=== PATIENT | female | born 1990 | race Caucasian/White ===

== ENCOUNTER 2016-11-05 21:56 | Emergency (ER) | payer OTHER, BC ==
[~2016-11-05] VITALS: Ht 170.1 cm; Wt 81.6 kg
[~2016-11-05 21:56] MED LIST: IMITREX25 MG PO; ZITHROMAX Z PA250 MG PO; ZOFRAN ODT4 MG SL
[2016-11-05 22:02] VITALS: BP 130/93
== END 2016-11-05 22:12 | disposition home or self-care (01) ==
LOC: ED 21:56
DX: Z04.3 Encounter for examination and observation following other accident (principal); M54.2 Cervicalgia; Z88.0 Allergy status to penicillin; V49.88XA Car occupant (driver) (passenger) injured in other specified transport accidents, initial encounter; Y93.89 Activity, other specified; Y92.89 Other specified places as the place of occurrence of the external cause; Y99.9 Unspecified external cause status

== ENCOUNTER 2023-01-10 23:12 | Emergency (ER) | payer OTHER ==
[~2023-01-10] VITALS: Wt 90.7 kg
[2023-01-11 00:04] VITALS: BP 135/83
== END 2023-01-11 01:53 | disposition home or self-care (01) ==
LOC: ED 23:12
DX: S93.601A Unspecified sprain of right foot, initial encounter (principal); Z88.0 Allergy status to penicillin; Z91.018 Allergy to other foods; X58.XXXA Exposure to other specified factors, initial encounter; Y93.89 Activity, other specified; Y92.89 Other specified places as the place of occurrence of the external cause; Y99.8 Other external cause status

== ENCOUNTER 2024-04-22 16:28 | Emergency (ER) | payer OTHER ==
[~2024-04-22] VITALS: Ht 170.1 cm; Wt 86.2 kg
[2024-04-22 16:42] VITALS: BP 140/70
[2024-04-22] MEDS ORDERED: SODIUM CHLORIDE 0.9% 1,000 ML IV ONE (16:50)
[2024-04-22] MEDS ORDERED: Ketorolac Tromethamine 15 MG/ML VIAL IV ONE (16:50)
[2024-04-22 17:14] LABS: BASO # 0.1 10*3/uL (0.0-0.1); BASO % 0.4 % (0.0-1.0); EOS # 0.3 10*3/uL (0.0-0.4); HEMATOCRIT 38.1 % (37.0-47.0); MEAN CELL VOLUME 86.6 fl (81.0-99.0); MEAN CORPUSCULAR HGB 28.6 pg (27.0-31.0); MEAN CORPUSCULAR HGB CONC 33.1 g/dl (33.0-37.0); MEAN PLATELET VOLUME 8.9 fl (9.6-12.3); MONO # 1.3 10*3/uL (0.1-1.0); MONO % 9.4 % (3.0-9.0); NEUT # 8.9 10*3/uL (2.3-7.9); PLATELET COUNT AUTOMATED 344 10*3/uL (130-400); RED CELL DISTRI WIDTH 12.2 % (0-14.5); WHITE BLOOD COUNT 13.5 10*3/uL (4.8-10.8)
[2024-04-22 17:35] LABS: BUN 11 mg/dl (9-23); CHLORIDE 101 mmol/L (98-107); POTASSIUM 3.3 mmol/L (3.4-5.1)
[2024-04-22] MEDS ORDERED: POTASSIUM CHLORIDE 20 MEQ TAB PO ONE (17:40)
[2024-04-22] MEDS ORDERED: AVPAK AZITHROM250 M1 PO (17:42)
== END 2024-04-22 18:16 | disposition home or self-care (01) ==
LOC: ED 16:28
PROVIDERS: Emergency Medicine
DX: R07.89 Other chest pain (principal); E87.6 Hypokalemia; J04.0 Acute laryngitis; G43.909 Migraine, unspecified, not intractable, without status migrainosus; Z88.0 Allergy status to penicillin; Z91.018 Allergy to other foods; Z98.890 Other specified postprocedural states

== ENCOUNTER 2025-03-19 19:35 | Emergency (ER) | payer OTHER ==
[~2025-03-19] VITALS: Ht 170.1 cm; Wt 124.7 kg
[~2025-03-19 19:35] MED LIST changes: +AVPAK AZITHROM250 M1 PO
[2025-03-19 19:57] VITALS: BP 150/90
[2025-03-19] MEDS ORDERED: Ondansetron Hydrochloride 4 MG TAB SL ONE (20:10)
[2025-03-19 20:15] LABS: BILIRUBIN Negative (Negative); BLOOD Negative (Negative); CLARITY Cloudy (Clear); COLOR Yellow (Yellow); KETONE Trace (Negative); LEUKO ESTERASE Negative (Negative); NITRITE Negative (Negative); PH 7.0 (4.5-8.0); SPECIFIC GRAVITY 1.020 (1.001-1.030); UROBILINOGEN 1.0 E.U./dl (0.0-1.0)
[2025-03-19 20:21] LABS: BACTERIA 2+; MUCOUS 1+
[2025-03-19 20:59] LABS: BASO # 0.0 10*3/uL (0.0-0.1); BASO % 0.4 % (0.0-1.0); EOS # 0.2 10*3/uL (0.0-0.4); EOS % 1.9 % (1.0-4.0); MEAN CELL VOLUME 87.6 fl (81.0-99.0); MEAN CORPUSCULAR HGB 29.7 pg (27.0-31.0); MEAN PLATELET VOLUME 9.3 fl (9.6-12.3); MONO # 0.8 10*3/uL (0.1-1.0); MONO % 8.4 % (3.0-9.0); NEUT # 4.2 10*3/uL (2.3-7.9); NEUT % 46.0 % (47.0-73.0); NUCLEATED RED BLOOD CELL 0.0 % (0.0-0.0); NUCLEATED RED BLOOD CELL 0.0 10*3/uL (0.0-0.0); PLATELET COUNT AUTOMATED 341 10*3/uL (130-400); RED CELL DISTRI WIDTH 12.0 % (0-14.5)
[2025-03-19] MEDS ORDERED: MG-AL HYDROXIDE/SIMETICONE 30 ML UDC PO STA (21:21)
[2025-03-19] MEDS ORDERED: Dicyclomine Hydrochloride 20 MG/10 ML OSYR PO STA (21:21)
[2025-03-19 21:31] LABS: BUN 10 mg/dl (9-23); SGPT/ALT 29 U/L (5-49)
== END 2025-03-19 21:50 | disposition home or self-care (01) ==
LOC: ED 19:35
PROVIDERS: Nurse Practitioner Family
DX: K21.9 Gastro-esophageal reflux disease without esophagitis (principal); Z88.0 Allergy status to penicillin; Z91.018 Allergy to other foods